=== PATIENT | female | born 1985 | race Caucasian/White ===

== ENCOUNTER 2025-01-27 08:59 | Emergency (ER) | payer BC, SELFPAY ==
[2025-01-27 09:02] VITALS: BP 121/87
--- NOTE | 2025-01-27 09:25 | ED.GENMED ---
History of Present Illness
General
Chief Complaint: Abdominal Symptoms
Source: patient and spouse
Exam Limitations: none
Time Seen by Provider: 01/27/25 09:09
Nursing documentation reviewed up to this point in time: agreed with
History of Present Illness
History of Present Illness:
39-year-old female presenting to the emergency department today with concerns of right upper quadrant abdominal pain over the past few days worse with eating. Was seen in urgent care yesterday had an outpatient ultrasound ordered that she was able
to make an appointment for in 3 days but had worsening pain today. Has had some intermittent nausea and vomiting. Denies any fevers chest pain shortness of breath.
Past History
Past History
ED Past Medical History: HTN and Other (SLE)
ED Past Surgical History: Gynecological, Tonsilectomy and Other
Social History
Living: with family
Review of Systems
Review of Systems
Allergies reviewed?: Yes
All Other Systems: ROS reviewed and negative except as documented in HPI and ROS
Phy Exam
Physical Exam
Physical Exam:
GENERAL: Alert , in no apparent distress
EYE: pupils equal and reactive
NECK: Supple, no significant adenopathy.
ENT: o/p clr, mmm.
CARDIAC: Regular rate and rhythm .
LUNGS: Clear breath sounds bilaterally, no acute respiratory distress, no wheezes/rales/rhonchi
ABDOMEN: Right upper quadrant abdominal pain to palpation positive Salcedo's
NEUROLOGICAL: Alert and oriented, no focal neuro deficits
SKIN: Warm and dry, skin intact.
MUSCULOSKELETAL: No edema, well perfused.
PSYCH: Normal and appropriate interaction.
Course
Orders/Labs/Results
Orders:
Orders
01/27/25 09:13
Electrocardiogram (*1) Stat
Reason for Study: Abdominal Pain
EKG- Treatment ONCE
0.9% Sodium Chloride 1000 ml [Nss] 1,000 ml IV BOLUS
Ketorolac [Toradol] 15 mg IV NOW STA
Ondansetron Injectable [Zofran] 4 mg IV NOW STA
Test Result ONCE
US Abdomen Complete/Upper Urgent
Comment:
Reason For Exam: ruq pain
01/27/25 09:34
Complete Blood Count/With Diff Urgent
Comprehensive Metabolic Panel Urgent
HCG, Serum Qualitative Screen Urgent
Lipase Urgent
Urinalysis Reflex To Culture Urgent
Date Specimen was Collected: 01/27/25
Time Specimen was Collected: :
Urine Microscopic Reflex Cult Urgent
Urine Culture Urgent
BONNY Source: U
Specimen Description:
Date Specimen was Collected: 01/27/25
Time Specimen was Collected:
01/27/25 10:48
Famotidine [Pepcid] 20 mg IV NOW STA
Mag Hydrox/Al Hydrox/Simeth [Maalox] 30 ml Phenobarb/Hyoscy/Atropine/Scop [] 10 ml PO NOW
Chest [CR Chest - 2 Views ] Urgent
Comment:
Reason For Exam: rightlower chest p ain
01/27/25 11:11
Mag Hydrox/Al Hydrox/Simeth [Maalox] 30 ml .ROUTE .STK-MED ONE
Phenobarb/Hyoscy/Atropine/Scop [] 10 ml .ROUTE .STK-MED ONE
Abnormal Lab Results
01/27/25
09:34
WBC 10.9 H 10^3/uL
(4.8-10.8)
Abs Immat Gran (auto) 0.1 H 10^3/uL
(0-0.05)
Absolute Neuts (auto) 8.3 H 10^3/uL
(1.4-6.5)
Absolute Monos (auto) 1.0 H 10^3/uL
(0.1-0.6)
Immature Gran % 0.6 H %
(0-0.5)
Neutrophils % 75.6 H %
(42.2-75.2)
Lymphocytes % 14.4 L %
(20.5-51.1)
Leukocyte Esterase Rfl 1+ A
(Negative)
Urine Bacteria (Reflex) Few A
(Negative)
01/27/25 09:34
01/27/25 09:34
Vital Signs
Initial and Last Documented VS:
Initial Vital Signs
Temp Pulse Resp BP Pulse Ox
97.5 F 90 16 121/87 99
01/27/25 09:02 01/27/25 09:02 01/27/25 09:02 01/27/25 09:02 01/27/25 09:02
Last Documented Vital Signs
Temp Pulse Resp BP Pulse Ox
97.5 F 93 18 116/75 98
01/27/25 09:02 01/27/25 11:20 01/27/25 11:20 01/27/25 11:20 01/27/25 11:20
MDM/Problems Addressed
MDM/Problems Addressed:
39-year-old female presenting to the emergency department today with concerns of right upper quadrant Robert pain worsening today has had intermittent symptoms over the past few days. On arrival vital signs are normal. Patient does have
significant discomfort of the right upper quadrant and positive Salcedo sign. Plan for labs and ultrasound for further assessment. Ultrasound without signs of emergent pathology additionally labs without any significant bilirubin changes or liver
function test changes making duct blockage unlikely as well. Patient does claim that she has had some intermittent coughing and recently had a flulike illness a few weeks ago. Concerning this plan for an x-ray to look for potential pneumonia. A
clot causing patient's symptoms is very unlikely patient is PERC negative. Otherwise patient feeling better after GI cocktail stable for outpatient management return precautions given.
*Critical Care Note
Total Time (30-74mins, 75-104mins- exclusive of procedures): Not Applicable
ED Attending Note
-
Portions of this chart may have been created with voice recognition software.� Occasional wrong word or��sound alike� substitutions may have occurred due to the inherent limitations of voice recognition software.
Discharge Plan
Departure
Patient Disposition: Home (Routine Discharge)
Date of Disposition: 01/27/25
Time of Disposition: 12:44
Patient with high blood pressure during this ER visit?: No
Condition: Good
Covid-19: Not Applicable
Discharge Problem:
Right upper quadrant abdominal pain
Instructions: Abdominal Pain
Referrals:
Yelena Maldonado PA [Family Provider] -
Merlene Boateng DO [Active] - Follow up in 5-7 days
Activity Restrictions/Additional Instructions:
You came to the emergency department today with concerns of right upper quadrant abdominal pain. Here you had a reassuring assessment. Please follow closely with GI and take symptomatic medications at home. Return for any worsening, new or
concerning symptoms.
Interventions
Interventions:
*ED COVID-19 Vaccine History Last Done: 01/27/25 11:20
WS-[facility] Assessment Last Done: 01/27/25 11:34
Discharge Date and Time
Print Language: THAI
[2025-01-27 09:27] VITALS: BMI 35.3
[2025-01-27] MEDS: NSS 1000 IV (09:40)
[2025-01-27] MEDS: ZOFRAN 4 MG IV (09:41)
[2025-01-27] MEDS: TORADOL 15 MG IV (09:41)
[2025-01-27 09:49] LABS: % Basophils 0.2 % (0-2); % Eosinophils 0.4 % (0-6); % Immature Granulocytes 0.6 % (0-0.5); % Lymphocytes 14.4 % (20.5-51.1); % Monocytes 8.8 % (1.7-9.3); % Neutrophils 75.6 % (42.2-75.2); Absolute Immature Granulocytes 0.1 10^3/uL (0-0.05); Absolute Lymphocytes 1.6 10^3/uL (1.2-3.4); Absolute Neutrophils 8.3 10^3/uL (1.4-6.5); Hematocrit 39.4 % (37.0-47.0); Hemoglobin 13.4 g/dL (12.0-16.0); Mean Corpuscular Hgb 29.6 pg (27.0-31.0); Mean Corpuscular Volume 87.2 fL (81.0-99.0); Mean Platelet Volume 9.8 fL (7.4-10.4); Nucleated Red Blood Cells % 0 %; Platelet Count 237 10^3/uL (130-400); Red Blood Cell Count 4.52 10^6/uL (4.20-5.40); White Blood Cell Count 10.9 10^3/uL (4.8-10.8)
[2025-01-27 09:50] LABS: Urine Albumin Negative (Neg - Trace); Urine Bilirubin Negative (Negative); Urine Character Clear (Clear); Urine Color Yellow; Urine Glucose Negative (Negative); Urine Ketone Negative (Negative); Urine Leukocyte 1+ (Negative); Urine Nitrite Negative (Negative); Urine Occult Blood Negative (Negative); Urine Urobilinogen Negative (Neg - 1+); Urine pH 6.5 (5.0-9.0)
[2025-01-27 10:00] LABS: HCG, Serum Qualitative Screen Negative
[2025-01-27 10:02] LABS: ALT (SGPT) 18 U/L (0-35); AST (SGOT) 20 U/L (14-36); Albumin 4.2 g/dl (3.5-5.0); Alkaline Phosphatase 54 U/L (38-126); Blood Urea Nitrogen 9 mg/dl (7-17); Calcium 9.3 mg/dl (8.4-10.2); Carbon Dioxide 24 mmol/L (22-30); Chloride 107 mmol/L (98-107); Estimated Creatinine Clearance > 125 ml/min; Glucose 91 mg/dl (70-99); Lipase 101 U/L (23-300); Potassium 4.1 mmol/L (3.5-5.1); Sodium 141 mmol/L (135-145); Total Bilirubin 0.6 mg/dl (0.2-1.3); Total Protein 6.4 g/dl (6.3-8.2); eGFR > 60.00
[2025-01-27 10:08] LABS: Urine Amorphous Seen; Urine Squamous Cell 0-2 /LPF (Few); Urine Urothelial Cell 0-2 /LPF (FEW)
[2025-01-27 10:10] LABS: Urine Red Blood Cell 0-2 /HPF (0-2)
[2025-01-27 10:11] LABS: Urine Bacteria Few (Negative)
[2025-01-27] MEDS: MAALOX 30 PO (11:14)
[2025-01-27 11:20] VITALS: BP 116/75
[2025-01-27 13:30] VITALS: BP 106/68
== END 2025-01-27 13:40 | disposition home or self-care (01) ==
LOC: EMR 08:59
PROVIDERS: Physician Assistant; EMERGENCY PHYSICIAN Emergency Medicine; FAMILY PHYSICIAN Physician Assistant Medical
DX: R10.11 Right upper quadrant pain (principal); R11.2 Nausea with vomiting, unspecified; I10 Essential (primary) hypertension; M32.9 Systemic lupus erythematosus, unspecified
CPT/HCPCS: 99285; 96375; 96361; 96374; 71046; 76700; 80053; 81003; 81015; 83690; 84703; 85025; 87086; 93005